=== PATIENT | female | born 1990 | race Caucasian/White ===

== ENCOUNTER 2024-12-16 06:34 | Emergency (ER) | payer OTHER, SELFPAY ==
[2024-12-16 06:37] VITALS: BP 152/82; PULSE 91; O2SAT 98
[2024-12-16 06:43] VITALS: BP 130/52; PULSE 79; RESP 18; TEMP 36.4; O2SAT 98; BMI 39.7
[2024-12-16] MEDS: LORazepam 1 MG TABLET PO (07:16)
[2024-12-16] MEDS: Acetaminophen 325 MG TABLET 975 MG PO (07:16)
--- NOTE | 2024-12-16 07:20 | ED_ITS ---
HPI - Anxiety General Chief Complaint: Anxiety Stated Complaint: DISCOMFORT TO THE NECK Time Seen by Provider: 12/16/24 06:37 Source: patient and EMS Mode of arrival: EMS Limitations: no limitations History of Present Illness ED Provider: Elza Nogueira PA-C HPI narrative: 34 yo female presents to the ER for evaluation of anxiety and left sided neck pain that she woke up with this morning. She reports waking up with left sided neck stiffness and pain. She also reports when the pain started she got very anxious and felt palpitations in her chest. She felt a lump in her throat which usually happens with her anxiety. She states she panicked and called 911. She took ibuprofen before coming in. She denies any SOB or chest pain. MD complaint: anxiety Related Data Previous Rx's ?Medication ?Instructions ?Recorded cyclobenzaprine 10 mg tablet 10 mg PO TID PRN muscle spasm #6 12/16/24 tabs lidocaine 5 % topical patch 1 patch topical DAILY #15 ea 12/16/24 Allergies Allergy/AdvReac Type Severity Reaction Status Date / Time Seasonal Allergies Allergy Unknown Verified 12/16/24 06:44 Review of Systems Review of Systems: Yes all other systems are reviewed and are negative [facility] Social History Social History Alcohol intake: current Alcohol intake frequency: holidays/special occasions only Smoked in Last 30 Days: No Use of substances other than those prescribed or required for medical reasons: No Advance Directives: No Advance Directives Information Provided: No Physical Exam Vital Signs: Vital Signs: Last Vital Signs Temp 97.5 F 12/16/24 06:43 Pulse 60 12/16/24 07:36 Resp 14 12/16/24 07:36 BP 110/47 L 12/16/24 07:36 Pulse Ox 97 12/16/24 07:36 O2 Del Method Room Air 12/16/24 07:36 BMI result Body Mass Index 39.7 Medications Administered Discontinued Medications Generic Name Dose Route Start Last Admin Trade Name Freq PRN Reason Stop Dose Admin Acetaminophen 975 mg 12/16/24 06:50 12/16/24 07:16 Acetaminophen 325 Mg Tablet PO 12/16/24 06:51 975 mg ONCE ONE Administration Lorazepam 1 mg 12/16/24 06:50 12/16/24 07:16 Lorazepam 1 Mg Tablet PO 12/16/24 06:51 1 mg ONCE ONE Administration Medical Decision Making Medical Decision Making MDM Narrative: 34 yo female presenting to the ER for evaluation of acute anxiety and left sided neck pain that she woke up with this morning. nonfocal neuro exam. VSS. pain with rotation to the left with soft tissue tenderness on exam. endorses anxiety but overall improved from when she was at home. given tylenol and po ativan. reassessed and feeling much better. stable for d/c home with prn flexeril, nsaid and outpatient follow up PRN Differential Diagnosis Differential Diagnoses: The differential diagnosis associated with the presentation includes cervical strain, cervical radiculopathy, anxiety, panic attack Independent Historian Clinical information obtained from an independent historian. History obtained from or confirmed by: EMS Tests considered The following testing was considered but not selected: considered EKG and cardiac workup however suspicion for cardiac etiology is low Prescription Management I considered prescription management with: Pain Medication Chronic Conditions Patient?s care impacted by: Other (anxiety) Critical Care Time Critical Care Time Critical Care Time: No Discharge Plan Discharge Clinical Impression: Acute anxiety Cervical muscle strain Qualifiers: Encounter type: initial encounter Qualified Code(s): S16.1XXA - Strain of muscle, fascia and tendon at neck level, initial encounter Patient Disposition: Home, Self-Care Instructions: Cervical Strain (ED), Anxiety (ED) Additional Instructions: Take the prescribed muscle relaxer as needed for neck pain. Use ice several times per day for 20 minutes at a time for the next 48 hours and then change to heat. Take medications as prescribed to help with pain and discomfort. Follow up with your Primary Care Doctor this week. If you develop new or worsening symptoms call 911 or come back to the ER for further evaluation. Prescriptions: New cyclobenzaprine 10 mg tablet 10 mg PO TID PRN (Reason: muscle spasm) Qty: 6 0RF lidocaine 5 % adhesive patch,medicated 1 patch topical DAILY Qty: 15 0RF Rx Instructions: leave on most painful area for up to 12 hrs Referrals: Cinthia Lamas MD [Primary Care Provider] - Print Language: Jordanian
[2024-12-16 07:36] VITALS: BP 110/47; PULSE 60; RESP 14; O2SAT 97
[2024-12-16 08:11] VITALS: BP 112/43; PULSE 59; RESP 14; TEMP 36.6; O2SAT 97
== END 2024-12-16 08:13 | disposition home or self-care (01) ==
PROVIDERS: Emergency Provider Internal Medicine; PCP Internal Medicine
DX: F41.9 Anxiety disorder, unspecified (principal); S16.1XXA Strain of muscle, fascia and tendon at neck level, initial encounter; X58.XXXA Exposure to other specified factors, initial encounter; Y93.9 Activity, unspecified; Y92.9 Unspecified place or not applicable; Y99.9 Unspecified external cause status; M54.2 Cervicalgia; R00.2 Palpitations
CPT/HCPCS: 99283; 99284

== ENCOUNTER 2025-05-22 05:45 | Emergency (ER) | payer OTHER, SELFPAY ==
--- NOTE | ~2025-05-22 | CT_ITS ---
EXAMINATION: CT ABDOMEN AND PELVIS WITHOUT CONTRAST CLINICAL INFORMATION: Right flank pain. COMPARISON: None available. TECHNIQUE: Multidetector volumetric imaging was performed from the superior aspect of the liver through the pubic symphysis. Sagittal and coronal reformatted images were obtained on the technologist's workstation. This CT examination was performed using dose optimization techniques as appropriate, variously including the following: *Automated exposure control *Adjustment of mA and/or kV according to patient size (this includes techniques or standardized protocols for targeted exams where dose is matched to indication/reason for exam; i.e. extremities or head) *Use of iterative reconstruction technique DLP: 646 mGy centimeter. FINDINGS: Limited examination of the intra-abdominal organs and vascular structures due to lack of IV contrast. LUNG BASES: No acute airspace disease. LIVER, GALLBLADDER, AND BILIARY TREE: Liver measures 17 cm with decreased attenuation. There is a subtle nodular surface. No pericholecystic fluid collection or gallbladder wall thickening. No intrahepatic or extrahepatic biliary ductal dilatation. PANCREAS: No peripancreatic fluid collections. No main pancreatic ductal dilatation. SPLEEN: 10 cm. ADRENAL GLANDS: No nodular lesions. KIDNEYS AND URETERS: Bilateral perinephric/pararenal edema pattern. No hydronephrosis. No gross nephrolithiasis in either kidney. No dilatation of the ureters. BLADDER: Fluid-filled nearly collapsed. GASTROINTESTINAL TRACT: Appendix is normal. Scattered diverticula. No intestinal obstruction pattern. Collapsed appearance of the transverse colon and left hemicolon. No pneumatosis intestinalis. No pneumoperitoneum. No ascites. ABDOMINAL WALL: Small fat-containing umbilical hernia. Diastases abdominal rectus muscles in the periumbilical region. LYMPH NODES: Nonspecific mildly prominent, mesenteric. VASCULAR: No aneurysm, abdominal aorta. No gross calcified plaques. PELVIC VISCERA: Inadequate evaluation. OSSEOUS STRUCTURES: Multilevel spondylosis pronounced from T9 to T12. No acute fracture or gross listhesis. Bony pelvis is intact. Coxofemoral joints are intact with normal alignment. CT/CT abdomen pelvis wo IV con IMPRESSION: Consider acute pyelonephritis, bilaterally, in the correct clinical settings. No hydronephrosis or nephrolithiasis. Hepatomegaly and mild steatosis. Small fat-containing umbilical hernia. Fleischner guidelines were followed. Electronically signed by: Stan Glaser MD 05/22/2025 10:38 AM EDT
--- NOTE | ~2025-05-22 | US_ITS ---
EXAMINATION: US ABDOMEN LIMITED HISTORY: RUQ tenderness TECHNIQUE: Real-time grayscale ultrasound imaging of the right upper quadrant was performed and images were reviewed. COMPARISON: There are no prior studies available for comparison. FINDINGS: Liver: The right lobe of the liver measures 17.2 cm in size. The left lobe of the liver measures 13.0 cm in size. The liver demonstrates increased echotexture, consistent with steatosis. There is focal fatty sparing adjacent to the gallbladder. No focal mass or intrahepatic biliary ductal dilatation is identified. There is normal hepatopedal flow in the portal vein. Gallbladder and biliary tree: The gallbladder is unremarkable, without evidence of calculi, wall thickening, or pericholecystic fluid. There is no sonographic Rodriguez sign. The common bile duct is normal in caliber measuring 6 mm. Right Kidney: The right kidney measures 12.5 cm in length. There is limited visualization of the upper pole. The right kidney is otherwise unremarkable, without evidence of masses, hydronephrosis, or calculi. Pancreas: The pancreas is obscured by bowel gas. Abdominal aorta and inferior vena cava: The visualized portions of the abdominal aorta and inferior vena cava are normal in caliber. There is no free fluid in the right upper quadrant. US/US abdomen limited IMPRESSION: Hepatomegaly and hepatic steatosis. Electronically signed by: Naresh Mcgowan MD 05/22/2025 09:21 AM EDT
[2025-05-22 05:57] VITALS: BP 149/71; PULSE 100; RESP 20; TEMP 37.1; O2SAT 98; BMI 41.6
[2025-05-22 06:13] LABS: MANUAL DIFF FLAG NO
[2025-05-22 06:14] LABS: Hematocrit 39.0 % (37.0-47.0); Hemoglobin 13.8 g/dl (12.0-16.0); Imm Gran Abs Auto 0.04 X10*3/uL (0.00-0.03); Imm Gran Pct Auto 0.3 % (0.0-0.4); Lymphocytes Absolute Auto 1.2 X10*3/uL (1.2-4.9); Mean Corpuscular HGB Conc 35.4 g/dl (31.0-35.0); Mean Corpuscular Hemoglobin 30.9 pg (27.0-33.0); Mean Corpuscular Volume 87.2 fL (80.0-98.0); NRBC Abs Auto 0.000 X10*3/uL (0.0-0.012); NRBC Pct Auto 0.0 /100WBC (0.0-0.2); Platelet Count 259 X10*3/uL (160-400); Red Blood Count 4.47 X10*6/uL (4.20-5.50); White Blood Count 14.5 X10*3/uL (4.8-10.8)
[2025-05-22 06:22] LABS: Appearance Urine Clear; Glucose Urine UA Negative (Negative); PH 6.0 (5.0-9.0); Specific Gravity - Urine 1.010 (1.005-1.025); UMIC TRIGGER UACC YES
--- OUTSIDE RECORDS SUMMARY | 2025-05-22 06:34 | XMS_ITS | Clinical Summary ---
Author Organization [facility] it Address [address] [place] [address] Care Team Providers Care Staker Surveying Name Role Phone Cinthia Lamas MD Primary Care Prov ider Allergies Active Allergy Reactions Criticality Noted Date Comments Cat Dander 01/27/2010 Dog Dander 01/27/2010 House Dust 01/27/2010 House Dust Mite 01/27/2010 Other 01/27/2010 Seasonal Allergies Pollen Extracts 01/27/2010 Pollen Active Problems Problem Noted Date Diagnosed Date Snoring 09/30/2017 Overview (12/04/2024): 09/28/2017 Home Sleep Study did not reveal sleep apnea. Hypercholesterolemia 01/19/2014 Overview (12/04/2024): Mild, No meds Acne 02/11/2010 Immunizations Name Administration Dates Next Due DTP 04/24/1992, 9,01/29/1989,1987 [id number] (Pentacel) 2mo to less than 5yo 04/24/1992 HPV, Quadrivalent 12/31/2007,09/01/2007,07/22/20 07 Hepatitis B (Bxnnodb-A-Rmxqq , Recombivax HB-Adult) 19yo and older 03/31/1996,04/24/1992 Hepatitis B Pediatric (Enger ix B; Recombivax HB) to less than 20 yo 10/16/1998 Influenza Quadravalent, MDCK , 0.5ml, with preservative (Flucelvax) 6mo and older 08/25/2017 Influenza trivalent, 0.5mL, preservative free (Fluarix; FluLaval; Fluzone) ages 6mo and older (Afluria) 3 years and older 07/09/2015 Influenza trivalent, with preservative (Fluzone; Afluria) 6mo and older 09/02/2021,08/31/2016,08/17/2014,2011,07/28/2011,07/15/2010,08/01/2009 MMR, measles mumps and rubel la Live (Priorix; M-M-R II) 12mo and older 01/21/1996,04/24/1992 OPV 04/24/1992,01/29/1989,1988 Tdap Tetanus diptheria acell ular pertussis (Boostrix; Adacel) 7yo and older 08/29/2015,07/15/2010 Surgical History Surgery Date Site/Laterality Comments TONSILLECTOMY age 6 PROCEDURE: HISTORICAL TONSILLECTOMY Medical History Medical History Date Comments Sprained ankle DX:Sprained ankl e Wrist injuries DX:Wrist injurie s Pneumonia DX:Pneumonia Laryngitis DX:Laryngitis Bronchitis DX:Bronchitis History of dysmenorrhea DX:Histo ry of dysmenorrhea Family History Medical History Relation Name Comments Other: ovarian ca Aunt maternal Uterine cancer Aunt maternal Diabetes Brother Hyperlipidemia Brother Mental illness Brother ADHD No Known Problems Father Arthritis Maternal Grandmother Hypertension Maternal Grandmother Other cancer Maternal Grandmother Allergies Mother had negative BR CA testing Diabetes Mother Gestational No Known Problems Sister 1 downs synd nir Colon cancer Neg Hx Relation Name Status Comments Aunt maternal Alive Brother Alive 1/2 Daughter Haley Alive Father Alive Maternal Grandfather Maternal Grandmother (Age 67) Mother Alive Paternal Grandfather Other Paternal Grandmother Other Sister 1 Alive Sister 2 Alive 1/2 Sister 3 Alive 1/2 Son Krishan Alive Social History Tobacco Use Types Packs/Day Years Used Date Smoking Tobacco: Never Smokeless Tobacco: Never Alcohol Use Standard Drinks/Week Comments Yes 0 (1 standard drink = 0.6 oz pur e alcohol) Comments Unknown Sex and Gender Information Value Date Recorded Sex Assigned at Not on file Legal Sex Female 9:52 AM EST Gender Identity Not on file Sexual Orientation Not on file Obstetrics History Plan of Treatment Health Maintenance Due Date Last Done Comments IPV Vaccines (5 of 5 - 5-dose series) 10/24/1992 04/24/1992, 04/24/1992, 01/29/1989, Additional history exists HIV Screening 10/10/2022 Hepatitis C Screening 10/10/2022 Social Influencers of Health Screening 10/10/2022 COVID-19 Vaccine ( season) 2024 10/14/2021, 04/05/2021, 03/08/2021 Depression Screening 11/01/2024 Influenza Vaccine (#1) 2025 , 08/25/2017, 08/31/2016, Additional history exists DTaP,Tdap,and Td Vaccines (7 - Td or Tdap) 08/29/2025 08/29/2015, 07/15/2010, 04/24/1992, Additional history exists Cervical Cancer Screening: HPV 12/18/2025 12/18/2020 Cholesterol Screening (Lipid Panel) 10/02/2026 10/02/2021 HIB Vaccines Completed 04/24/1992 MMR Vaccines Completed 01/21/1996, 04/24/1992 Hepatitis B Vaccines Completed 10/16/1998, 03/31/1996, 04/24/1992 HPV Vaccines Completed 12/31/2007, 110 11/2006, 07/22/2007 Hepatitis A Vaccines Aged Out No long er eligible based on patient's age to complete this topic Meningococcal ACWY Vaccine Aged Out N o longer eligible based on patient's age to complete this topic Meningococcal B Vaccine Aged Out No l onger eligible based on patient's age to complete this topic Pneumococcal Vaccine: Pediatrics (0 to 5 Years) and At-Risk Patients (6 to 49 Years) Aged Out No longer eligible based on patient's age to complete this topic RSV Immunization Patients Under 20 months Aged Out No longer eligible based on patient's age to complete this topic Varicella Vaccines Aged Out No longer eligible based on patient's age to complete this topic Procedures Procedure Name Priority Date/Time Associated Diagnosis Comments LIPID PANEL Routine 10/02/2021 HM HPV Routine 12/18/2020 from Last 3 Months or Most Recently Relevant to Health Maintenance Results * (ABNORMAL) Lipid panel (10/02/2021) LDL/HDL Ratio 6(A) 0 - 4 Triglycerides 237(A) 0 - 150 mg/dL Cholesterol 204(A) 0 - 200 mg/dL HDL 33(A) >=39 mg/dL LDL Cholesterol 124(A) 0 - 100 mg/dL Blood Venous blood specimen / Unknown us Historical Provider LAB BLOOD ORDERABLES Joann l Result * Cervical Cancer Screening: HPV (12/18/2020) Cervical Cancer Screening: HPV negative, abstracted us Historical Provider HEALTH MAINTENANCE Final Result from Last 3 Months or Most Recently Relevant to Health Maintenance Care Teams Staker Surveying Relationship Specialty Start Date End Date Cinthia Lamas MD PCP - General 12/05/08
[2025-05-22 06:36] LABS: Alanine Aminotransferase 18 U/L (0-31); Albumin Level 4.7 g/dL (3.5-5.0); Alkaline Phosphatase 95 U/L (39-117); Anion Gap 18 (12-20); Aspartate Amino Transferase 25 U/L (5-31); Blood Urea Nitrogen 15 mg/dL (9-16); Calcium 10.6 mg/dL (8.4-10.2); Carbon Dioxide 21 mmol/L (22-29); Chloride 105 mmol/L (96-108); Creatinine Clr Calc Pharmacy 70.6; Estimated Glomerular Filt Rate 52; Lipase 24 U/L (8-78); Magnesium 1.9 mg/dL (1.6-2.6); Potassium 4.2 mmol/L (3.3-5.1); Sodium 140 mmol/L (135-145); Total Protein 7.5 g/dL (6.5-8.0)
[2025-05-22 06:44] VITALS: BP 121/79; PULSE 87; RESP 16; TEMP 36.8; O2SAT 98
[2025-05-22 06:54] LABS: Resp Syncy Virus RNA Qual PCR NEGATIVE (Negative); SARS COV2 PCR INHOUSE NEGATIVE (Negative)
--- NOTE | 2025-05-22 08:06 | ED.GENADULT ---
HPI - General Adult General Chief complaint: Abdominal Pain Stated complaint: abd pain right side & back pain Time Seen by Provider: 05/22/25 08:02 Source: patient, RN notes reviewed and old records reviewed Mode of arrival: ambulatory Limitations: no limitations History of Present Illness ED Provider: Yuli HPI narrative: Patient is a 35-year-old female with no prior history of abdominal surgeries presenting to the emergency department with complaint of right upper quadrant pain with associated nausea and vomiting which began last night. States this morning pain began to radiate around to her back. States for the past few days she has had constipation and use the stool softener and today is having loose stools. She is unsure of hematemesis as she states she drank red Gatorade last night. Denies hematochezia or melena. Last menstrual period was 1 month ago. She denies dysuria, frequency, hematuria or other urinary symptoms. MD complaint: abdominal pain Onset (ago): day(s) Related Data Previous Rx's ?Medication ?Instructions ?Recorded cyclobenzaprine 10 mg tablet 10 mg PO TID PRN muscle spasm #6 12/16/24 tabs lidocaine 5 % topical patch 1 patch topical DAILY #15 ea 12/16/24 Allergies Allergy/AdvReac Type Severity Reaction Status Date / Time Seasonal Allergies Allergy Unknown Verified 05/22/25 06:01 Review of Systems Review of Systems: As per HPI Yes all other systems are reviewed and are negative Constitutional: Constitutional: Reports as per HPI [facility] Social History Social History Alcohol intake: current Alcohol intake frequency: holidays/special occasions only Smoked in Last 30 Days: No Use of substances other than those prescribed or required for medical reasons: No Advance Directives: No Advance Directives Information Provided: Yes Patient : No Physical Exam ED Vital Signs: Vital Signs - 24 hr 05/22/25 05:57 05/22/25 06:44 05/22/25 08:18 Temperature 98.7 F 98.3 F 97.8 F Pulse Rate 100 87 81 Respiratory Rate 20 16 18 Blood Pressure 149/71 H 121/79 124/68 Pulse Oximetry 98 98 97 Oxygen Delivery Method Room Air Room Air Room Air 05/22/25 10:02 Temperature 98.1 F Pulse Rate 71 Respiratory Rate 16 Blood Pressure 113/53 L Pulse Oximetry 99 Oxygen Delivery Method Room Air BMI result Body Mass Index 41.6 Vital signs have been reviewed and appear to be correct. Blood pressure normal. Heart rate normal. Respiratory rate normal. Temperature normal. Oxygen saturation normal. Const General: cooperative, healthy appearing and no acute distress Orientation/consciousness: oriented to person, oriented to place, oriented to time and patient oriented x3 Limitations: no limitations HENMT Head: Yes normocephalic and Yes atraumatic Ears: external ears normal General nose exam: Normal external nose present Face and sinus: Yes face symmetric Mouth: oropharynx normal and moist mucous membranes Throat: Yes uvula midline Eyes Pupils: Equal, round and reactive pupils present Neck Neck: Yes normal visual inspection and Yes supple Resp Effort & Inspection: normal respiratory effort and able to speak in complete sentences Auscultation: clear to auscultation bilaterally Cardio Rate: regular rate Rhythm: regular rhythm Heart sounds: S1 normal heart sound present and S2 normal heart sound present GI Palpation (GI): Soft to palpation, Tenderness to palpation present (GI) in the RUQ (mild), no guarding and No Rebound tenderness present Auscultation: normoactive bowel sounds General: Yes no CVA tenderness Back/Spine/Pelvis Back: no CVA tenderness Skin General skin exam: elasticity normal and turgor normal Neuro General: oriented to person, oriented to place, oriented to time, patient oriented x3, moves all extremities, no focal motor deficits and CN's II-XI intact bilaterally Cranial nerves: Yes Equal, round and reactive pupils present Cognition (Neuro): normal cognition Extrem General: Yes full ROM, Yes no pedal edema and Yes no calf tenderness Psych Mental Status: mental status grossly normal Affect: normal affect Thought process: Normal thought process present Medications Administered Discontinued Medications Generic Name Dose Route Start Last Admin Trade Name Freq PRN Reason Stop Dose Admin Ketorolac Tromethamine 15 mg 05/22/25 08:10 05/22/25 08:31 Ketorolac Tromethamine 15 Mg/Ml Vial IVPUSH 05/22/25 08:11 15 mg ONCE ONE Administration Ondansetron HCl 4 mg 05/22/25 08:10 05/22/25 08:32 Ondansetron Hcl 4 Mg/2 Ml Vial IVPUSH 05/22/25 08:11 4 mg ONCE ONE Administration Medical Decision Making Medical Decision Making [facility] Narrative: Patient is a 35-year-old female with no prior history of abdominal surgeries presenting to the emergency department with complaint of right upper quadrant pain with associated nausea and vomiting which began last night. On exam patient is awake, A+Ox3, VS WNL, afebrile, normal neurological exam without focal deficits, physical exam findings as above. Given reported symptoms and physical exam findings, initial differential includes but is not limited to biliary colic, cholecystitis, cholangitis, hepatitis. Labs notable for mild leukocytosis, otherwise unremarkable, normal transaminases and Tbili. U/S notable for hepatomegaly and hepatic steatosis. My interpretation is in agreement with the radiologist's interpretation. Will obtain CT A/P to assess for obstructing calculi as patient noted to have hematuria on UA. No evidence of infection on UA. CT A/P notable for bilateral perinephric edema without evidence of obstructing calculi or hydronephrosis. All results discussed with patient and questions answered. No definitive cause for patient's symptoms at this time. Will refer to GI and urology for further evaluation of abnormal findings on imaging. Return precautions discussed at bedside. Patient verbalized understanding of and agreement with plan. Differential Diagnosis Differential Diagnoses: The differential diagnosis associated with the presentation includes As per [facility] Admission/Observation Consideration of admission/observation: Escalation of care including admission/observation considered Patient would have been admitted to the hospital had their clinical presentation warranted hospital admission. Lab Data [facility] Lab Attestation statement: I reviewed the patient's lab results. as per [facility] 05/22/25 06:09 05/22/25 06:09 Labs: Lab Results 05/22/25 05/22/25 Range/Units 06:09 06:15 WBC 14.5 H (4.8-10.8) X10*3/uL RBC 4.47 (4.20-5.50) X10*6/uL Hgb 13.8 (12.0-16.0) g/dl Hct 39.0 (37.0-47.0) % MCV 87.2 (80.0-98.0) fL MCH 30.9 (27.0-33.0) pg MCHC 35.4 H (31.0-35.0) g/dl RDW 11.8 (11.0-16.0) % Plt Count 259 (160-400) X10*3/uL MPV 9.8 (9.4-12.3) fL Immature Gran % (Auto) 0.3 (0.0-0.4) % Neut % (Auto) 84.6 H (45-73) % Lymph % (Auto) 8.3 L (20-40) % Clay % (Auto) 5.4 (2-11) % Eos % (Auto) 1.1 (0-4) % Baso % (Auto) 0.3 (0-2) % Lymph # (Auto) 1.2 (1.2-4.9) X10*3/uL Clay # (Auto) 0.8 (0.1-1.2) X10*3/uL Eos # (Auto) 0.2 (0.0-0.4) X10*3/uL Baso # (Auto) 0.1 (0.0-0.2) X10*3/uL Abs Immat Gran (auto) 0.04 H (0.00-0.03) X10*3/uL Absolute Neuts (auto) 12.3 H (2.0-8.3) x10*3/uL Absolute Nucleated RBC 0.000 (0.0-0.012) X10*3/uL Nucleated RBC % (auto) 0.0 (0.0-0.2) /100WBC Sodium 140 (135-145) mmol/L Potassium 4.2 (3.3-5.1) mmol/L Chloride 105 (96-108) mmol/L Carbon Dioxide 21 L (22-29) mmol/L Anion Gap 18 (12-20) BUN 15 (9-16) mg/dL Creatinine 1.18 (0.5-1.4) mg/dL Estim Creat Clear Calc 70.6 Estimated GFR 52 Random Glucose 137 H (60-115) mg/dL Calcium 10.6 H (8.4-10.2) mg/dL Magnesium 1.9 (1.6-2.6) mg/dL Total Bilirubin 0.7 (0.0-1.0) mg/dL AST 25 (5-31) U/L ALT 18 (0-31) U/L Alkaline Phosphatase 95 (39-117) U/L Total Protein 7.5 (6.5-8.0) g/dL Albumin 4.7 (3.5-5.0) g/dL Lipase 24 (8-78) U/L Beta HCG, Quant < 2 mIU/mL Urine Color Yellow Urine Appearance Clear Urine pH 6.0 (5.0-9.0) Ur Specific [place] 1.010 (1.005-1.025) Urine Protein 300 (3+) H (Neg-Trace) mg/dL Urine Glucose (UA) Negative (Negative) mg/dL Urine Ketones Negative (Negative) mg/dL Urine Blood Trace H (Negative) Urine Nitrite Negative (Negative) Ur Leukocyte Esterase Trace H (Negative) Urine RBC 3-5 H (0-2) /HPF Urine WBC 0-5 (0-5) /HPF Ur Squamous Epith Cells 0-2 (0-2) /HPF Urine Bacteria None Seen (None Seen) Hyaline Casts 3-5 (0-2) /LPF Influenza Type A (PCR) NEGATIVE (Negative) Influenza Type B (PCR) NEGATIVE (Negative) RSV RNA Qual (PCR) NEGATIVE (Negative) SARS-CoV-2 RNA (RT-PCR) NEGATIVE (Negative) Independent Interpretation I performed an independent interpretation of an: Ultrasound and CT Scan Interpretation: U/S notable for hepatomegaly and hepatic steatosis. CT A/P notable for bilateral perinephric edema without evidence of obstructing calculi or hydronephrosis. Radiology Impression Discussion of test interpretation with radiology: I have reviewed the radiologist's reading. Radiologist Impression: CT/CT abdomen pelvis wo IV con IMPRESSION: Consider acute pyelonephritis, bilaterally, in the correct clinical settings. No hydronephrosis or nephrolithiasis. Hepatomegaly and mild steatosis. Small fat-containing umbilical hernia. US/US abdomen limited IMPRESSION: Hepatomegaly and hepatic steatosis. External Record Review External record reviewed: Inpatient record, Office record and Outpatient record Discharge Plan Discharge Clinical Impression: Abdominal pain Patient Disposition: Home, Self-Care Instructions: Abdominal Pain (ED) Additional Instructions: You have been evaluated in the emergency department today for abdominal pain. Your evaluation did not show evidence of medical conditions requiring emergent intervention at this time. Your ultrasound did show an enlarged liver. We are referring you to gastroenterology for further evaluation of this. Your CT scan showed fluid around your kidneys. You are being referred to Urology for further evaluation of this. Please schedule an appointment with your primary care physician. Return to the emergency department if you experience worsening or uncontrolled pain, fevers 100.4? F or greater, recurrent vomiting, inability to tolerate food or fluids by mouth, bloody stools or vomit, black or tarry stools, or any other concerning symptoms. Prescriptions: No Action cyclobenzaprine 10 mg tablet 10 mg PO TID PRN (Reason: muscle spasm) Qty: 6 0RF lidocaine 5 % adhesive patch,medicated 1 patch topical DAILY Qty: 15 0RF Rx Instructions: leave on most painful area for up to 12 hrs Referrals: [facility] [Provider Group, Gastroenterology] Referral Note: hepatomegaly and hepatic steatosis on u/s Clinical Impression: Abdominal pain [facility] [Provider Group, Urology] Referral Note: bilateral perinephric edema Print Language: [place] Korean
[2025-05-22 08:18] VITALS: BP 124/68; PULSE 81; RESP 18; TEMP 36.6; O2SAT 97
[2025-05-22 10:02] VITALS: BP 113/53; PULSE 71; RESP 16; TEMP 36.7; O2SAT 99
[2025-05-22 11:49] VITALS: BP 113/53; PULSE 71; RESP 16; TEMP 36.7; O2SAT 99
== END 2025-05-22 11:49 | disposition home or self-care (01) ==
PROVIDERS: Emergency Provider Emergency Medicine; PCP Internal Medicine
DX: R10.11 Right upper quadrant pain (principal); R11.2 Nausea with vomiting, unspecified; Z03.818 Encounter for observation for suspected exposure to other biological agents ruled out; Z79.899 Other long term (current) drug therapy
CPT/HCPCS: 36415; 74176; 76705; 80053; 81001; 83690; 83735; 84702; 85025; 87637; 96374; 96375; 99284; J1885; J2405

== ENCOUNTER → 2025-05-22 08:10 | Outpatient (BNV) | payer OTHER, SELFPAY | PROVIDERS: Emergency Provider Emergency Medicine; PCP Internal Medicine; Visit Provider Radiology Diagnostic Radiology | DX: R16.0 Hepatomegaly, not elsewhere classified (principal) | CPT/HCPCS: 74176; 76705 ==